=== PATIENT | male | born 1995 | race Two or more races ===

== ENCOUNTER 2018-08-15 05:37 | Day surgery (SDC) | payer OTHER | END 2018-08-15 16:55 | disposition home or self-care (01) | LOC: CIR.AMB 05:37 | DX: S42.352A Displaced comminuted fracture of shaft of humerus, left arm, initial encounter for closed fracture (principal) ==

== ENCOUNTER 2021-05-27 05:45 | Day surgery (SDC) | payer OTHER | END 2021-05-27 13:25 | disposition home or self-care (01) | LOC: CIR.AMB 05:45 | PROVIDERS: ATTEND Colon & Rectal Surgery | DX: L05.01 Pilonidal cyst with abscess (principal); Z20.822 Contact with and (suspected) exposure to COVID-19 ==